=== PATIENT | female | born 1945 | race Caucasian/White ===

== ENCOUNTER → 2017-08-03 | Outpatient (CLI) | payer MEDICARE, BC ==
[~2017-08-03] MED LIST: ARMOUR THYROID120 MG PO; ATENOLOL100 MG PO; CLOPIDOGREL75 M2; DRAMAMINE25 MG PO; HYDROCHLOROTH12.5 M2 PO; LASIX40 MG PO; LEVOTHYROXIN0.075 M1 PO; METFORMIN500 MG PO; NITROGLYCERIN0.4 MG; VITAMIN D50000 IU
[2017-08-03 13:56] LABS: HEMOGLOBIN 14.4 g/dL (12.2-16.2); LYMPH # 1.8 K/mm3 (0.7-4.5); LYMPH % 26.9 % (10-50.0)
[2017-08-03 14:01] LABS: BUN 16 mg/dL (7-18)
[2017-08-03 14:02] LABS: GFR (ESTIMATED) 55 ML/MIN (59-)
== END ==
LOC: LAB 13:20
PROVIDERS: Physician Assistant
DX: I10 Essential (primary) hypertension (principal); E55.9 Vitamin D deficiency, unspecified; E11.9 Type 2 diabetes mellitus without complications; E03.9 Hypothyroidism, unspecified